=== PATIENT | female | born 1950 | race Caucasian/White ===

== ENCOUNTER 2017-05-13 23:01 | Emergency (ER) | payer OTHER ==
[2017-05-13 23:07] VITALS: RESP 16; TEMP 98.6
[2017-05-14 01:00] LABS: % IMMATURE GRANULYOCYTES 0.4 % (0.0-1.1); ABSOLUTE IMMATURE GRANULOCYTES 0.04 10^3/uL (0.00-0.10); ADD DIFF? NO; ADD MORPH? NO; ADD SCAN? NO; ATYPICAL LYMPHOCYTE FLAG 0 (0-99); FRAGMENT RBC FLAG 0 (0-99); HEMATOCRIT 37.1 % (38.0-47.0); HEMOGLOBIN 13.1 g/dL (12.6-16.3); LEFT SHIFT FLG 0 (0-99); LIPEMIA HEMOLYSIS FLAG 90 (0-99); MEAN CELL HEMOGLOBIN CONCENTR. 35.3 g/dL (32.4-36.7); MEAN CELL VOLUME 93.5 fL (81.5-99.8); MEAN PLATELET VOLUME 10.5 fL (8.7-11.7); PLATELET CLUMPS FLAG 0 (0-99); PLATELET COUNT 176 10^3/uL (150-400); RED BLOOD CELL COUNT 3.97 10^6/uL (4.18-5.33)
[2017-05-14 01:06] LABS: ANION GAP 12 mEq/L (8-16); CALCIUM 10.2 mg/dL (8.5-10.4); CARBON DIOXIDE 21 mEq/l (22-31); CHLORIDE 103 mEq/L (97-110); GLOMERULAR FILTRATION RATE 55; GLUCOSE 107 mg/dL (70-100); POTASSIUM 4.2 mEq/L (3.5-5.2); SODIUM 136 mEq/L (134-144)
--- NOTE | 2017-05-14 01:27 | CPEKG ---
Heart Rate: 90 RR Interval: 667 P-R Interval: 144 QRSD Interval: 90 QT Interval: 344 QTC Interval: 421 P [place]: 53 QRS [place]: -5 T Wave [place]: 42 EKG Severity - NORMAL ECG - EKG Impression: SINUS RHYTHM Electronically Signed By: Mary Garland 14-May-2017 07:40:39
[2017-05-14 01:37] LABS: TROPONIN I < 0.012 ng/mL (0-0.034)
[2017-05-14] MEDS ORDERED: LIDOCAINE 1% 100 MG in NS 100 ML IV ONE (01:45)
[2017-05-14] MEDS ORDERED: FAMOTIDINE 20 MG/NACL 50 ML IV ONE (01:46)
[2017-05-14] MEDS ORDERED: IOPAMIDOL (ISOVUE-300) 100 ML BTL ONE (01:54)
--- NOTE | 2017-05-14 02:04 | EDPHY ---
H & P Stated Complaint: acid reflux pain Time Seen by Provider: 05/14/17 01:29 HPI/ROS: HPI The patient presents with abdominal pain which has been present for the last 2 days which is both epigastric in her left lower quadrant. She has had associated vomiting with this. The pain is intermittent, achy in nature, does not radiate, and is not associated with any dark or bloody stools or any diarrhea. She has a history of acid reflux and 1 month ago was switched from Nexium to Zantac. She has not been able to eat or drink as much because of pain.. REVIEW OF SYSTEMS Constitutional: No fever, no chills. Eyes: No discharge. ENT: No sore throat. Cardiovascular: No chest pain, no palpitations. Respiratory: No cough, no shortness of breath. Gastrointestinal: See HPI Genitourinary: No hematuria. Musculoskeletal: No back pain. Skin: No rashes. Neurological: No headache. PMHx: GERD Soc Hx: Housed PHYSICAL General Appearance: Alert, no distress Eyes: Pupils equal and round no pallor or injection ENT, Mouth: Mucous membranes moist Respiratory: There are no retractions, lungs are clear to auscultation Cardiovascular: Regular rate and rhythm Gastrointestinal: Abdomen is soft with tenderness in the left lower quadrant without rebound or guarding Neurological: A&O, moves all extremities Skin: Warm and dry, no rashes Musculoskeletal: Neck is supple non tender Extremities: symmetrical, full range of motion Psychiatric: Patient is oriented X 3, there is no agitation Source: Patient Exam Limitations: No limitations - Personal History Current Tetanus/Diphtheria Vaccine: Yes Current Tetanus Diphtheria and Acellular Pertussis (TDAP): Yes - Medical/Surgical History Hx Asthma: No Hx Chronic Respiratory Disease: No Hx Diabetes: No Hx Cardiac Disease: No Hx Renal Disease: No Hx Cirrhosis: No Hx Alcoholism: No Hx HIV/AIDS: No Hx Splenectomy or Spleen Trauma: No Other PMH: GERD, HTN, hysterectomy, tonsilectomy, bladder lift - Social History Smoking Status: Never smoked Constitutional: Initial Vital Signs Temperature (C) 37 C 05/13/17 23:05 Heart Rate 105 H 05/13/17 23:05 Respiratory Rate 16 05/13/17 23:05 Blood Pressure 158/81 H 05/13/17 23:05 O2 Sat (%) 96 05/13/17 23:05 O2 Delivery Mode Room Air Allergies/Adverse Reactions: No Known Allergies Allergy (Unverified 05/13/17 23:04) Home Medications: Medication Instructions Recorded Amlodipine Besylate 05/13/17 Ranitidine HCl 05/13/17 Sertraline HCl 05/13/17 Amoxicillin/Clavulanate Pot 875 mg PO BID #14 tab 05/14/17 [Augmentin 875 MG TAB (*)] Medical Decision Making - Diagnostics Imaging Results: CT abdomen pelvis with IV contrast demonstrates diverticulitis of the sigmoid with 2nd bowel wall, discussed with the radiologist. Imaging: Discussed imaging studies w/ calliope player Radiologist Differential Diagnosis: This is a 66-year-old female with history of GERD who presents from home with left lower quadrant abdominal pain as well as epigastric pain. On exam, she is comfortable appearing, she does have tenderness in her left lower quadrant. Differential diagnosis includes diverticulitis, bowel obstruction, GERD. In the emergency room, the patient was given a L of IV fluid for volume depletion. Labs were checked and were unremarkable. CT scan was performed because of persistent left lower quadrant tenderness. This revealed sigmoid diverticulitis without any perforation or microabscess. I explained this to the patient, I will give her a dose of Augmentin here and perform a p.o. challenge. If she is able to tolerate this, she can be discharged home with a course of Augmentin. The radiologist has recommended that she follow with colonoscopy and endoscopy given her thickened esophagus. She is visiting from [place], she is actually due for colonoscopy, I have reinforced the need for her to follow up with this. I have discussed return precautions to the emergency room including worsening pain or fever. - Data Points Laboratory Results: Laboratory Results 05/14/17 00:20 05/14/17 00:20 05/14/17 05/14/17 00:20 00:20 WBC 9.16 10^3/uL 10^3/uL (3.80-9.50) RBC 3.97 10^6/uL L 10^6/uL (4.18-5.33) Hgb 13.1 g/dL g/dL (12.6-16.3) Hct 37.1 % L % (38.0-47.0) MCV 93.5 fL fL (81.5-99.8) MCH 33.0 pg pg (27.9-34.1) MCHC 35.3 g/dL g/dL (32.4-36.7) RDW 12.0 % % (11.5-15.2) Plt Count 176 10^3/uL 10^3/uL (150-400) MPV 10.5 fL fL (8.7-11.7) Neut % (Auto) 84.5 % H % (39.3-74.2) Lymph % (Auto) 6.2 % L % (15.0-45.0) [place] % (Auto) 8.4 % % (4.5-13.0) Eos % (Auto) 0.3 % L % (0.6-7.6) Baso % (Auto) 0.2 % L % (0.3-1.7) Nucleat RBC Rel Count 0.0 % % (0.0-0.2) Absolute Neuts (auto) 7.73 10^3/uL H 10^3/uL (1.70-6.50) Absolute Lymphs (auto) 0.57 10^3/uL L 10^3/uL (1.00-3.00) Absolute Monos (auto) 0.77 10^3/uL 10^3/uL (0.30-0.80) Absolute Eos (auto) 0.03 10^3/uL 10^3/uL (0.03-0.40) Absolute Basos (auto) 0.02 10^3/uL 10^3/uL (0.02-0.10) Absolute Nucleated RBC 0.00 10^3/uL 10^3/uL (0-0.01) Immature Gran % 0.4 % % (0.0-1.1) Immature Gran # 0.04 10^3/uL 10^3/uL (0.00-0.10) Sodium 136 mEq/L mEq/L (134-144) Potassium 4.2 mEq/L mEq/L (3.5-5.2) Chloride 103 mEq/L mEq/L (97-110) Carbon Dioxide 21 mEq/l L mEq/l (22-31) Anion Gap 12 mEq/L mEq/L (8-16) BUN 15 mg/dL mg/dL (7-23) Creatinine 1.0 mg/dL mg/dL (0.6-1.0) Estimated GFR 55 Glucose 107 mg/dL H mg/dL (70-100) Calcium 10.2 mg/dL mg/dL (8.5-10.4) Troponin I < 0.012 ng/mL ng/mL (0-0.034) Medications Given: Discontinued Medications Amoxicillin/Clavulanate Potassium (Augmentin 875mg) 875 mg PO EDNOW ONE PRN Reason: Protocol Stop: 05/14/17 03:08 Last Admin: 05/14/17 03:30 Dose: 875 mg Famotidine/Sodium Chloride (Pepcid 20 Mg (Premix)) 50 mls @ 200 mls/hr IV EDNOW ONE Stop: 05/14/17 02:00 Last Admin: 05/14/17 02:40 Dose: 50 mls Lidocaine HCl 100 mg/ Sodium (Chloride) 110 mls @ 600 mls/hr IV EDNOW ONE Stop: 05/14/17 01:55 Last Admin: 05/14/17 03:00 Dose: 110 mls Departure - Departure Disposition: Home, Routine, Self-Care Clinical Impression: Diverticulitis Condition: Good Instructions: Diverticulitis (ED), Diverticulitis Diet (ED) Additional Instructions: You should take Ibuprofen or Tylenol as needed for pain. Please return to the emergency room if you are worse in any way. It is recommended that you follow up with a colonoscopy in the next few months because of the thickening of your colon seen on the CT scan. Referrals: GUTIERREZ OLIVO [Other] - As per Instructions Prescriptions: Amoxicillin/Clavulanate Pot [Augmentin 875 MG TAB (*)] 875 mg PO BID #14 tab
[2017-05-14] MEDS ORDERED: AMOXICILLIN/CLAVULANATE POT 875/125 MG TAB PO ONE (03:07)
[2017-05-14 04:54] VITALS: BP 134/78; PULSE 82; O2SAT 91
== END 2017-05-14 04:52 | disposition home or self-care (01) ==
DX: K57.92 Diverticulitis of intestine, part unspecified, without perforation or abscess without bleeding (principal); I10 Essential (primary) hypertension; Z90.710 Acquired absence of both cervix and uterus
CPT/HCPCS: 71020; 74177; 93005; 96374; 96375; 99285; Q9967